=== PATIENT | male | born 1945 | race Caucasian/White ===

== ENCOUNTER 2016-04-13 07:20 | Day surgery (SDC) | payer MEDICARE ==
[~2016-04-13 07:20] MED LIST: Bupivacaine 0.5% 50 ML MDV ONE; Lidocaine 1% with EPINEPHrine 1:100,000 50 ML MDV ONE
[2016-04-13] MEDS ORDERED: ceFAZolin 2 GM in Premix Bag 1 BAG IV ONE (08:00)
[2016-04-13] MEDS ORDERED: Dextrose 5%-Lactated Ringers 1,000 ML IV SCH (08:00)
[2016-04-13] MEDS ORDERED: fentaNYL 100 MCG/2 ML SDV ONE (08:50)
[2016-04-13] MEDS ORDERED: Propofol 200 MG/20 ML SDV ONE (08:50)
[2016-04-13] MEDS ORDERED: Midazolam 1 MG/ML 2 ML SDV ONE (08:50)
[2016-04-13] MEDS ORDERED: Ketorolac 60 MG/2 ML SDV ONE (09:30)
[2016-04-13 11:47] VITALS: BP 127/81
--- NOTE | 2016-04-20 15:59 | OR ---
DATE OF PROCEDURE: 04/13/2016 PREOPERATIVE DIAGNOSIS: Right inguinal hernia. POSTOPERATIVE DIAGNOSES: 1. Incarcerated right inguinal hernia. 2. Right ilioinguinal nerve at risk for scar entrapment. PROCEDURE: 1. Open repair of incarcerated right inguinal hernia with mesh (30026). 2. Division of right ilioinguinal nerve (92324). ANESTHESIA: Local plus IV sedation. INDICATION FOR PROCEDURE: This is a 70-year-old male presenting with an increasingly symptomatic right inguinal hernia. After preoperative evaluation and discussion, he wished to proceed with a repair with mesh plug technique. Potential risks including bleeding, infection, recurrence of the hernia problems of chronic pain following the hernia repair, recurrence of the hernia and such were all reviewed, and the patient wishes to proceed. DETAILS OF PROCEDURE: The patient was taken to the operating room and placed in a supine position. IV sedation was administered, after which the abdomen and groin areas were prepped and draped. The right inguinal area was anesthetized with 1% lidocaine mixed with Marcaine, and a standard right inguinal incision made and carried down through the skin and subcutaneous tissue and through the external oblique aponeurosis in line with the external ring. Subaponeurotic flaps were then raised superiorly and inferiorly. The course of the ilioinguinal nerve laid right across the plain where the flat portion of the mesh plug system would be placed and was felt to be at risk for scar entrapment. Given this, this was divided. A segment of this was excised for pathologic confirmation and the point of vision was in the far lateral aspect of the incision. The cord structures were then mobilized upward. Dissection of the cord structures revealed no indirect hernia. The patient did have a medial direct hernia. Upon dissection in this area, this contained some incarcerated bladder fat. After division of the transversalis fascia, that area was then reduced and a large mesh plug was then selected. This was then placed underneath the conjoint tendon. It was affixed to the Anish's ligament with titanium tacking screws and then the underside of the conjoint tendon medially, superiorly, and laterally with horizontal mattress sutures of 3-0 Vicryl stitch. The flat portion of the mesh plug system was then laid over this and sutured lateral to the cord structures and tacked to the pubic tubercle with the titanium tacks as well. The external oblique aponeurosis was then approximated with a 4-0 Vicryl stitch as well as Romelia's fascia, and the skin closed with a 4-0 Vicryl subcuticular stitch. Dressing applied. The patient was taken to the recovery room in satisfactory condition. There were no evident complications. Que Gandhi MD /[id number]
== END 2016-04-13 11:49 | disposition home or self-care (01) ==
LOC: JP.SDS 07:20
PROVIDERS: ATTEND Surgery
DX: K40.30 Unilateral inguinal hernia, with obstruction, without gangrene, not specified as recurrent (principal)
CPT/HCPCS: 49507; 64772; 88302; C1781; J0690; J1885; J2250; J2704; J3010; J7042

== ENCOUNTER 2024-01-25 13:13 | Day surgery (SDC) | payer MEDICARE ==
[2024-01-25] MEDS: Lactated Ringers 1,000 ML IV SCH (13:35)
[2024-01-25 14:24] VITALS: BP 168/79; PULSE 72
== END 2024-01-25 14:35 | disposition home or self-care (01) ==
LOC: JP.SDS 13:13
PROVIDERS: ATTEND Internal Medicine
DX: K62.7 Radiation proctitis (principal)
CPT/HCPCS: 45330; J7120